=== PATIENT | male | born 1995 | race Caucasian/White ===

== ENCOUNTER 2016-12-14 17:41 | Emergency (ER) | payer BC ==
[2016-12-14] MEDS ORDERED: Bacitracin Zinc 1 Packet ONE (18:23)
--- NOTE | 2016-12-14 18:59 | ERRECORD ---
[facility] EMERGENCY RECORD HPI HAND (18:35 AGRE) CHIEF COMPLAINT: Patient presents for evaluation of injury. HISTORIAN: History provided by patient, CUT HIS RIGHT HAND ON CABLE AT WORK THIS MORNING. NO NUMBNESS OR TINGLING OR WEAKNESS. NO BLEEDING. MECHANISM OF INJURY: Known mechanism. LOCATION: Symptoms are localized, most severe in the volar surface of the hand. SEVERITY: Currently there are no symptoms. TIME COURSE: Sudden onset of symptoms, There has been no change in the patient's symptoms over time. ASSOCIATED WITH: Associated with open wounds, Denies any other complaints. EXACERBATED BY: Patient's condition exacerbated by movement. RELIEVED BY: Patient's condition relieved by rest. ROS (18:37 AGRE) CONSTITUTIONAL: Historian denies chills, denies fever, denies lethargy, denies malaise. EYES: Historian denies eye pain, denies eye redness. ENT: Historian denies rhinorrhea, denies sinus pain, denies sore throat. CARDIOVASCULAR: Historian denies chest pain, denies dyspnea on exertion. RESPIRATORY: Historian denies cough, denies shortness of breath. GI: Historian denies abdominal pain, denies nausea, denies vomiting. MUSCULOSKELETAL: Historian denies back pain, denies neck pain. SKIN: Historian reports skin changes, denies skin lesions. LACERATION OF PALM. NEUROLOGIC: Historian denies headache, denies mental status changes. PSYCHIATRIC: Negative psychiatric review of systems, Historian denies anxiety. PAST MEDICAL HISTORY (17:53 MSPE) MEDICAL HISTORY: No past medical history, Flu vaccine not up to date, Tetanus immunization up to date, Pneumococcal vaccine not up to date. MALE SURGICAL HISTORY: Patient has no surgical history. PSYCHIATRIC HISTORY: No previous psychiatric history. SOCIAL HISTORY: Patient drinks socially, Patient denies drug use, Patient currently uses tobacco, smokes cigarettes, Patient smokes 1/2 packs per day. KNOWN ALLERGIES No Known Drug Allergies CURRENT MEDICATIONS (17:50 MSPE) None &a-1R&a+25V*p+0X*s2452K*c202B*c15G*c2P*p-0X&a-25V&a+1R Name: Thomas Gibbons : 1995 M21 MedRec: [id number] AcctNum: [id number] Prepared: WedDec 14, 2016 21:23 by Interface Page [address] [facility] EMERGENCY RECORD VITAL SIGNS (17:51 MSPE) VITAL SIGNS: BP: 136/75, Pulse: 91, Resp: 18, Temp: 99.1 (Oral), Pain: 0, O2 sat: 97 on Room Air, Time: 12/14/2016 17:51. PHYSICAL EXAM (21:16 AGRE) CONSTITUTIONAL: Vital signs reviewed, Patient afebrile, Patient appears non toxic, Patient appears pain free, Patient alert and oriented to person, place and time, NURSES NOTES REVIEWED. HEAD: Head exam included findings of head atraumatic, normocephalic. EYES: Eye exam included findings of eyelids normal to inspection, Extraocular muscles intact, Conjunctiva normal, Sclera normal. ENT: Ear exam normal, Nose exam normal, Mouth exam normal. NECK: Neck exam included findings of normal range of motion, no meningeal signs. RESPIRATORY CHEST: Respiratory exam included findings of no respiratory distress, Chest exam included findings of chest movement symmetrical. BACK: Back exam included findings of normal inspection, range of motion normal. UPPER EXTREMITY: Upper extremity exam included findings of inspection normal, Range of motion normal. EXCEPT LACERATION RIGHT HAND. LOWER EXTREMITY: Lower extremity exam included findings of inspection normal, Range of motion normal. NEURO: Neuro exam findings include patient oriented to person, place and time, Speech normal, Gait normal, Memory normal, Cranial nerves intact, no focal motor deficits. SKIN: Skin exam included findings of skin warm, dry, and normal in color, APPROXIMATELY 4 CM LACERATION VERTICALLY OVER THE HEEL OF THE PALM ULNAR ASPECT WITHOUT SIGNS OF INFECTION OR ACTIVE BLEEDING. THE EDGES CLOSE WELL BUT GAP OPEN WITH MOVEMENT OF THE HAND. REMAINDER OF HAND EXAM WNL. PSYCHIATRIC: Psychiatric exam normal, Normal affect. DOCTOR NOTES (21:18 AGRE) TEXT: DISCUSSED WITH PATIENT AGE OF THE WOUND AND RISK OF INFECTION. ADVISED ALLOWING THE WOUND TO HEAL AND KEEPING THE EDGES APPROXIMATED WITH A WRAP TO IMMOBILIZE THE WRIST AREA. ADVISED THAT SHOULD GET GOOD HEALING BUT WILL NEED TO KEEP WOUND CLEAN AND DRY AND CHANGE THIS DRESSING AT LEAST 2 TIMES DAILY, HE EXPRESSED UNDERSTANDING AND AGREEMENT. PATIENT STATUS: Patient has improved since arrival to emergency department. PATIENT PLAN: The patient will be discharged. PROBLEM LIST No recorded problems DIAGNOSIS (18:33 AGRE) &a-1R&a+25V*p+0X*[id number]*c202B*c15G*c2P*p-0X&a-25V&a+1R Name: Thomas Gibbons Mitali VERONICA: 1995 M21 MedRec: [id number] AcctNum: [id number] Prepared: WedDec 14, 2016 21:23 by Interface Page [address] [facility] EMERGENCY RECORD FINAL: PRIMARY: HAND LACERATION. PRESCRIPTION No recorded prescriptions DISPOSITION PATIENT: Disposition Type: Discharge, Disposition: *Discharge Home, Condition: Improved. (18:33 AGRE) Patient left the department. (18:55 MSPE) Velasquez: AGRE=MD Allan, Lakhwinder MSPE=MELODY Hawk, Laura &a-1R&a+25V*p+0X*[id number]*c202B*c15G*c2P*p-0X&a-25V&a+1R Name: Thomas Gibbons: 1995 M21 MedRec: [id number] AcctNum: [id number] Prepared: WedDec 14, 2016 21:23 by Interface Page 3 of 3 pMD MTDD
--- NOTE | 2016-12-14 19:06 | PICIS ---
[facility] EMERGENCY RECORD TRIAGE (WedDec 14, 2016 17:49 MSPE) TRIAGE NOTES: stripping cable at work with hook knife and cut base of right hand. No active bleeding. Occurred this a.m. at 0900. (WedDec 14, 2016 17:49 MSPE) PATIENT: NAME: Thomas Gibbons, AGE: 21, GENDER: male, : Wed1995, TIME OF GREET: WedDec 14, 2016 17:42, PREFERRED LANGUAGE: Barbadian, ETHNICITY: Not or , ECODE BILLING MAP: [facility], SSN: [id number], Zip Code: [address], KG WEIGHT: 67.59, PHONE: , , , PERSON ID: [id number], PCP: unsure. (WedDec 14, 2016 17:49 MSPE) COMPLAINT: RT HAND/PALM,INJ/CUT,STRIPPING CABLE. (WedDec 14, 2016 17:49 MSPE) ADMISSION: URGENCY: 4 Non Urgent, ADMISSION SOURCE: Work, TRANSPORT: CAR, BED: ER -02. (WedDec 14, 2016 17:49 MSPE) SIRS SCORING: Heart Rate 55-109 (0), Temp range 96.8-101.1 (0), respiratory rate 12-24 (0), Mental Status altered: no (0), Total SIRS Score 0. (17:53 MSPE) TRIAGE SCREENING: Patient denies suicidal ideation, Patient denies presence of domestic violence. (17:53 MSPE) TREATMENTS IN PROGRESS: Treatments given Prehospital: none today. (17:53 MSPE) PROVIDERS: TRIAGE NURSE: Laura Hawk RN. (WedDec 14, 2016 17:49 MSPE) KNOWN ALLERGIES No Known Drug Allergies CURRENT MEDICATIONS (17:50 MSPE) None VITAL SIGNS (17:51 MSPE) VITAL SIGNS: BP: 136/75, Pulse: 91, Resp: 18, Temp: 99.1 (Oral), Pain: 0, O2 sat: 97 on Room Air, Time: 12/14/2016 17:51. NURSING ASSESSMENT: SKIN (18:00 MSPE) CONSTITUTIONAL: Patient arrives ambulatory, Gait steady, History obtained from patient, Patient appears comfortable, Patient cooperative, Patient alert, Oriented to person, place and time, Skin warm, Skin dry, Skin normal in color. PAIN: "stinging", Onset of pain 12/14/2016 approx 0900. SKIN: Inspection findings include laceration, to base of right hand, length (cm) approx 2.5, bleeding controlled, sensation intact; cap refill < 2sec. No active bleeding. Radial pulse strong and easi;ly palpated. NURSING PROCEDURE: DISCHARGE NOTE (18:53 MSPE) DISCHARGE: Patient discharged to home, ambulating without assistance, Summary of Care printed/ provided, Discharge instructions &a-1R&a+25V*p+0X*l1811P*c202B*c15G*c2P*p-0X&a-25V&a+1R Name: Thomas Gibbons : 1995 M21 MedRec: [id number] AcctNum: [id number] Prepared: WedDec 14, 2016 21:23 by Interface Page 1 of 4 pMD [facility] EMERGENCY RECORD given to patient, Simple or moderate discharge teaching performed, Above person(s) verbalized understanding of discharge instructions and follow-up care, Patient treated and evaluated by physician. BELONGINGS: Belongings remain with patient. NURSING PROCEDURE: WOUND CARE WOUND CARE: Wound care indicated to promote healing, Notes: Lac site scrubbed with Hibiclens Surgical Scrub Sponge. Did not activate any bleeding from site. Pt tolerated well. (18:05 MSPE) Notes: Bacitractin ointment to wound. Dressed with Telfa pad, bulky 4x4s and Coban wrap in neutral position. (18:34 MSPE) FOLLOW-UP: Notes: Simple 4x4 gauze applied to site pending ERMD evaluation. (18:05 MSPE) After procedure, capillary refill less than 2 seconds, After procedure, distal circulation intact, After procedure, distal motor intact, After procedure, distal sensation intact, After procedure, distal pulses present. (18:34 MSPE) ORDER DETAILS Order Name: Miscellaneous Nurse Order(s), Status: Done, Time: 18:34 12/14/2016, User: LGO, - Ordered for: MD Lemus Andrea, - Entered by: MD Lemus Andrea - WedDec 14, 2016 18:31, - Quantity: 1. HPI HAND (18:35 AGRE) CHIEF COMPLAINT: Patient presents for evaluation of injury. HISTORIAN: History provided by patient, CUT HIS RIGHT HAND ON CABLE AT WORK THIS MORNING. NO NUMBNESS OR TINGLING OR WEAKNESS. NO BLEEDING. MECHANISM OF INJURY: Known mechanism. LOCATION: Symptoms are localized, most severe in the volar surface of the hand. SEVERITY: Currently there are no symptoms. TIME COURSE: Sudden onset of symptoms, There has been no change in the patient's symptoms over time. ASSOCIATED WITH: Associated with open wounds, Denies any other complaints. EXACERBATED BY: Patient's condition exacerbated by movement. RELIEVED BY: Patient's condition relieved by rest. ROS (18:37 AGRE) CONSTITUTIONAL: Historian denies chills, denies fever, denies lethargy, denies malaise. EYES: Historian denies eye pain, denies eye redness. ENT: Historian denies rhinorrhea, denies sinus pain, denies sore throat. CARDIOVASCULAR: Historian denies chest pain, denies dyspnea on exertion. RESPIRATORY: Historian denies cough, denies shortness of breath. &a-1R&a+25V*p+0X*i9799U*c202B*c15G*c2P*p-0X&a-25V&a+1R Name: Thomas Gibbons : 1995 M21 MedRec: [id number] AcctNum: [id number] Prepared: WedDec 14, 2016 21:23 by Interface Page 2 of 4 D [facility] EMERGENCY RECORD GI: Historian denies abdominal pain, denies nausea, denies vomiting. MUSCULOSKELETAL: Historian denies back pain, denies neck pain. SKIN: Historian reports skin changes, denies skin lesions. LACERATION OF PALM. NEUROLOGIC: Historian denies headache, denies mental status changes. PSYCHIATRIC: Negative psychiatric review of systems, Historian denies anxiety. PAST MEDICAL HISTORY (17:53 MSPE) MEDICAL HISTORY: No past medical history, Flu vaccine not up to date, Tetanus immunization up to date, Pneumococcal vaccine not up to date. MALE SURGICAL HISTORY: Patient has no surgical history. PSYCHIATRIC HISTORY: No previous psychiatric history. SOCIAL HISTORY: Patient drinks socially, Patient denies drug use, Patient currently uses tobacco, smokes cigarettes, Patient smokes 1/2 packs per day. PHYSICAL EXAM (21:16 AGRE) CONSTITUTIONAL: Vital signs reviewed, Patient afebrile, Patient appears non toxic, Patient appears pain free, Patient alert and oriented to person, place and time, NURSES NOTES REVIEWED. HEAD: Head exam included findings of head atraumatic, normocephalic. EYES: Eye exam included findings of eyelids normal to inspection, Extraocular muscles intact, Conjunctiva normal, Sclera normal. ENT: Ear exam normal, Nose exam normal, Mouth exam normal. NECK: Neck exam included findings of normal range of motion, no meningeal signs. RESPIRATORY CHEST: Respiratory exam included findings of no respiratory distress, Chest exam included findings of chest movement symmetrical. BACK: Back exam included findings of normal inspection, range of motion normal. UPPER EXTREMITY: Upper extremity exam included findings of inspection normal, Range of motion normal. EXCEPT LACERATION RIGHT HAND. LOWER EXTREMITY: Lower extremity exam included findings of inspection normal, Range of motion normal. NEURO: Neuro exam findings include patient oriented to person, place and time, Speech normal, Gait normal, Memory normal, Cranial nerves intact, no focal motor deficits. SKIN: Skin exam included findings of skin warm, dry, and normal in color, APPROXIMATELY 4 CM LACERATION VERTICALLY OVER THE HEEL OF THE PALM ULNAR ASPECT WITHOUT SIGNS OF INFECTION OR ACTIVE BLEEDING. THE EDGES CLOSE WELL BUT GAP OPEN WITH MOVEMENT OF THE HAND. REMAINDER OF HAND EXAM WNL. PSYCHIATRIC: Psychiatric exam normal, Normal affect. &a-1R&a+25V*p+0X*d2324V*c202B*c15G*c2P*p-0X&a-25V&a+1R Name: Thomas Gibbons : 1995 M21 MedRec: [id number] AcctNum: [id number] Prepared: WedDec 14, 2016 21:23 by Interface Page 3 of 4 D [facility] EMERGENCY RECORD EVENTS TRANSFER: Triage to Emergency Emergency Room -02. (WedDec 14, 2016 17:49 MSPE) Removed from Emergency Emergency Room -02. (18:55 MSPE) DOCTOR NOTES (21:18 AGRE) TEXT: DISCUSSED WITH PATIENT AGE OF THE WOUND AND RISK OF INFECTION. ADVISED ALLOWING THE WOUND TO HEAL AND KEEPING THE EDGES APPROXIMATED WITH A WRAP TO IMMOBILIZE THE WRIST AREA. ADVISED THAT SHOULD GET GOOD HEALING BUT WILL NEED TO KEEP WOUND CLEAN AND DRY AND CHANGE THIS DRESSING AT LEAST 2 TIMES DAILY, HE EXPRESSED UNDERSTANDING AND AGREEMENT. PATIENT STATUS: Patient has improved since arrival to emergency department. PATIENT PLAN: The patient will be discharged. PROBLEM LIST No recorded problems DIAGNOSIS (18:33 AGRE) FINAL: PRIMARY: HAND LACERATION. DISPOSITION PATIENT: Disposition Type: Discharge, Disposition: *Discharge Home, Condition: Improved. (18:33 AGRE) Patient left the department. (18:55 MSPE) INSTRUCTION (18:34 AGRE) DISCHARGE: HAND LACERATION. SPECIAL: KEEP THE WOUND CLEAN AND DRY. CHANGE THE DRESSING AT LEAST 2 TIMES A DAY AND APPLY NEOSPORIN OINTMENT AND A NON-STICK DRESSING AND COBAIN. FOLLOW UP WITH YOUR PHYSICIAN FOR WOUND CHECK NEXT WEEK. TYLENOL IF NEEDED FOR PAIN. PRESCRIPTION No recorded prescriptions IMAGING (18:54 MSPE) *DISCHARGE INSTRUCTIONS RECEIPT: Image captured from scanner. *SUPPLY CHARGE SHEET: Image captured from scanner. ADMIN (21:20 AGRE) DIGITAL SIGNATURE: MD Lemus Andrea. Velasquez: AGRE=MD Lemus Andrea MSPE=MELODY Hawk, Laura &a-1R&a+25V*p+0X*m4005C*c202B*c15G*c2P*p-0X&a-25V&a+1R Name: Thomas Gibbons : 1995 M21 MedRec: [id number] AcctNum: [id number] Prepared: WedDec 14, 2016 21:23 by Interface Page 4 of 4 pMD MTDD
== END 2016-12-14 18:53 | disposition home or self-care (01) ==
LOC: NAV ERS 17:41
DX: S61.411A Laceration without foreign body of right hand, initial encounter (principal); F17.210 Nicotine dependence, cigarettes, uncomplicated; W26.0XXA Contact with knife, initial encounter; Y92.69 Other specified industrial and construction area as the place of occurrence of the external cause
CPT/HCPCS: 99283